=== PATIENT | female | born 1950 | race Caucasian/White ===

== ENCOUNTER 2018-03-28 10:20 | Outpatient (CLI) | payer MEDICAID | END 2018-03-28 10:21 | disposition home or self-care (01) | LOC: C.MAMMO 10:20 | DX: R92.8 Other abnormal and inconclusive findings on diagnostic imaging of breast (principal) ==

== ENCOUNTER 2018-08-23 13:14 | Observation (INO) | payer MEDICAID ==
[2018-08-23 13:24] VITALS: BMI 24.7
[2018-08-23] MEDS ORDERED: Aspirin 325 mg EC Tablets PO STA (13:52)
--- NOTE | 2018-08-23 14:36 | C.PDOC ---
History Of Present Illness 67 y/o female pt presents to the ER by ambulance c/o palpitations and SVT. Pt was given 1 round of adenosine which helped her go back to normal. Pt has no history of cardiac hx, SVT and denies fever, chills, SOB, abdominal pain and b ack pain. Time Seen by Provider: 08/23/18 13:46 Chief Complaint (Nursing): Syncope History Per: Patient History/Exam Limitations: no limitations Onset/Duration Of Symptoms: Hrs Current Symptoms Are (Timing): Still Present Past Medical History Reviewed: Historical Data, Nursing Documentation, Vital Signs Vital Signs: Last Vital Signs Temp 98.1 F 08/23/18 13:24 Pulse 88 08/23/18 14:15 Resp 20 08/23/18 14:15 BP 132/69 08/23/18 14:17 Pulse Ox 100 08/23/18 14:15 Primary Care Provider: Rustam Barber Surgical History: Appendectomy (denies) Family History: States: Unknown Family Hx - Social History Hx Alcohol Use: No Hx Substance Use: No - Immunization History Hx Tetanus Toxoid Vaccination: No Hx Influenza Vaccination: No Hx Pneumococcal Vaccination: No Review Of Systems Except As Marked, All Systems Reviewed And Found Negative. Constitutional: Negative for: Fever, Chills, Other (cardiac hx or SVT ) Cardiovascular: Positive for: Palpitations, Other (SVT ) Respiratory: Negative for: Shortness of Breath Gastrointestinal: Negative for: Abdominal Pain Musculoskeletal: Negative for: Back Pain Physical Exam - Physical Exam Appears: Non-toxic, No Acute Distress, Other (elderly, smiling dominican female ) Skin: Warm, Dry Head: Normacephalic Eye(s): bilateral: EOMI Ear(s): Bilateral: Normal Oral Mucosa: Moist Throat: Normal, No Erythema Neck: Normal ROM, Supple Chest: Symmetrical Cardiovascular: Rhythm Regular Respiratory: Normal Breath Sounds Gastrointestinal/Abdominal: Soft, No Tenderness Back: No CVA Tenderness Neurological/Psych: Oriented x3, Normal Speech ED Course And Treatment - Laboratory Results Result Diagrams: 08/23/18 14:40 08/23/18 14:40 Lab Interpretation: Normal (trop neg.) ECG: Interpreted By Me ECG Rhythm: Sinus Rhythm ECG Interpretation: Normal Rate From EC O2 Sat by Pulse Oximetry: 100 (RA) Pulse Ox Interpretation: Normal - Radiology CXR: Interpreted by Me CXR Interpretation: Yes: No Acute Disease Reevaluation Time: 16:26 Reassessment Condition: Improved - Physician Consult Information Outcome Of Conversation: 1410, 1620 d/w Dr. Alanis, PMD, ok to adm to Hospitalists. 1410: d/w Dr. Mccoy, will consult. 1700: d/w Dr. Turcios, Hospitalist, ok to Tele OBs Medical Decision Making Medical Decision Making: Plans: -- labs -- EKG -- CXR -- Ecotrin -- Lopressor 2:[address] Alanis and was suggested to call Dr. Mccoy for cardiac consult 2:[address] Mccoy. SVT of ? etiology well controlled in ED Disposition Doctor Will See Patient In The: Office Counseled Patient/Family Regarding: Studies Performed - Disposition Disposition: HOME/ ROUTINE Disposition Time: 16:28 Condition: GOOD - Clinical Impression Clinical Impression: Supraventricular tachycardia - Scribe Statement The provider has reviewed the documentation as recorded by the Padmini Frank Do Provider Attestation: All medical record entries made by the Padmini were at my direction and personally dictated by me. I have reviewed the chart and agree that the record accurately reflects my personal performance of the history, physical exam, medical decision making, and the department course for this patient. I have also personally directed, reviewed, and agree with the discharge instructions and d isposition.
--- NOTE | 2018-08-23 14:41 | RAD ---
Date of service: 08/23/2018 PROCEDURE: CHEST RADIOGRAPH, 1 VIEW HISTORY: SOB COMPARISON: None available. FINDINGS: LUNGS: Clear. PLEURA: No pneumothorax or pleural fluid seen. CARDIOVASCULAR: No aortic atherosclerotic calcification present. Normal. OSSEOUS STRUCTURES: No significant abnormalities. VISUALIZED UPPER ABDOMEN: Normal. OTHER FINDINGS: None. IMPRESSION: No active disease.
[2018-08-23 14:49] LABS: BASO # 0.1 K/uL (0.0-0.2); EOS # 0.2 K/uL (0.0-0.7); EOS % 2.1 % (0.0-4.0); HEMOGLOBIN 12.1 g/dL (11.0-16.0); LYMPH % 30.2 % (20.0-40.0); MEAN CELL VOLUME 77.1 fL (81.0-99.0); MEAN CORPUSCULAR HEMOGLOBIN 25.8 pg (27.0-31.0); MEAN CORPUSCULAR HGB CONC 33.5 g/dL (33.0-37.0); MEAN PLATELET VOLUME 9.9 fL (7.2-11.7); MONO # 0.6 K/uL (0.0-0.8); NEUT % 60.7 % (50.0-75.0); NRBC % 0.1 % (0.0-2.0); RBC 4.66 Mil/uL (3.80-5.20); RED CELL DISTRIBUTION WIDTH 13.3 % (11.5-14.5)
[2018-08-23 14:52] LABS: WHITE BLOOD COUNT 9.8 K/uL (4.8-10.8)
[2018-08-23 15:00] LABS: ALB/GLOB RATIO 1.3 (1.0-2.1); ALBUMIN 3.7 g/dL (3.5-5.0); ALT/SGPT 35 U/L (9-52); AST/SGOT 28 U/L (14-36); BLOOD UREA NITROGEN 16 mg/dL (7-17); CALCIUM 8.8 mg/dl (8.6-10.4); GFR NON-AFRICAN AMERICAN > 60
[2018-08-23 15:04] LABS: INR 1.1; PROTHROMBIN TIME 12.5 SECONDS (9.7-12.2)
[2018-08-23 15:12] LABS: B-TYPE NATRIURETIC PEPTIDE 88.6 pg/mL (0-900)
--- NOTE | 2018-08-23 17:51 | CP.PCM.HP ---
<Vimal Kidd - Last Filed: 08/23/18 18:24> History of Present Illness - History of Present Illness History of Present Illness: PGY-[address] and [address] Turcios Patient is a 67 year old female with no stated significant PMHx who presents with two episodes of palpitations, found to be in SVT presenting from urgent care earlier this evening. Patient states that earlier this morning, she was standing up when suddenly she felt very cold and felt palpitations. She went to sit herself down on the couch and states that after that everything started to go dark and then she lost conciousness and remembers waking up with her daughter who by her side. Patient woke and began to feel better, and then had a nearly identical episode several hours later, prompting her to go to urgent care. Daughter drove patient to urgent care, and during her evaluation at urgent care patient states the physician had 911 called for transport to hospital. EMS arrived on scene and patient found to be in SVT on environmental monitoring technician. Patient was administered adenosine x1 in the filed and SVT broke, with patient returning to normal sinus. Patient states having no prior cardiac history, and recently saw a tufter for the first time because she wanted to have her heart checked and was told that everything was normal. She denies any chest pain, headache, nausea, vomiting, focal weakness, shortness of breath, numbness or tingling, vision changes/blurry or double vision. 12-point ROS reviewed and all negative except as noted per HPI PMHx: denies Surgical hx: Denies Allergiess: NKA Social: Denies tobacco, alcohol, or drug use. Lives at home, retired. Family hx: multiple fam members with heart dz. Older sister has pacemaker. Medications: Flexaril prn on occasion for leg cramps PMD: Dr. Paez Present on Admission - Present on Admission Any Indicators Present on Admission: No Past Patient History - Past Social History Smoking Status: Never Smoked - PSYCHIATRIC Hx Substance Use: No - SURGICAL HISTORY Hx Appendectomy: Yes (denies) - ANESTHESIA Hx Anesthesia: Yes Meds Allergies/Adverse Reactions: Allergies Allergy/AdvReac Type Severity Reaction Status Date / Time No Known Allergies Allergy Verified 08/23/18 13:23 Physical Exam - Constitutional Appears: Non-toxic, No Acute Distress - Head Exam Head Exam: ATRAUMATIC, NORMOCEPHALIC - Eye Exam Eye Exam: EOMI - ENT Exam ENT Exam: Mucous Membranes Moist - Respiratory Exam Respiratory Exam: Clear to Auscultation Bilateral, NORMAL BREATHING PATTERN. absent: Rhonchi, Wheezes - Cardiovascular Exam Cardiovascular Exam: REGULAR RHYTHM, +S1, +S2. absent: Tachycardia, Systolic Murmur Additional comments: NSR on monitor - GI/Abdominal Exam GI & Abdominal Exam: Normal Bowel Sounds, Soft. absent: Tenderness - Extremities Exam Extremities exam: Positive for: normal inspection. Negative for: pedal edema, tenderness - Neurological Exam Neurological exam: Alert, CN II-XII Intact, Oriented x3 - Psychiatric Exam Psychiatric exam: Normal Affect, Normal Mood - Skin Skin Exam: Dry, Intact Results - Vital Signs Recent Vital Signs: Last Vital Signs Temp 98.1 F 08/23/18 13:24 Pulse 68 08/23/18 17:01 Resp 16 08/23/18 17:01 BP 103/62 08/23/18 17:01 Pulse Ox 100 08/23/18 17:05 - Labs Result Diagrams: 08/23/18 14:40 08/23/18 14:40 Labs: Laboratory Results - last 24 hr 08/23/18 08/23/18 08/23/18 13:22 14:40 14:40 WBC 9.8 D RBC 4.66 Hgb 12.1 Hct 36.0 MCV 77.1 L MCH 25.8 L MCHC 33.5 RDW 13.3 Plt Count 242 MPV 9.9 Neut % (Auto) 60.7 Lymph % (Auto) 30.2 Baker % (Auto) 6.0 Eos % (Auto) 2.1 Baso % (Auto) 1.0 Neut # (Auto) 6.0 Lymph # (Auto) 3.0 Baker # (Auto) 0.6 Eos # (Auto) 0.2 Baso # (Auto) 0.1 PT 12.5 H INR 1.1 APTT 31.0 Sodium Potassium Chloride Carbon Dioxide Anion Gap BUN Creatinine Est GFR ( Amer) Est GFR (Non-Af Amer) POC Glucose (mg/dL) 104 Random Glucose Calcium Total Bilirubin AST ALT Alkaline Phosphatase Troponin I NT-Pro-B Natriuret Pep Total Protein Albumin Globulin Albumin/Globulin Ratio 08/23/18 14:40 WBC RBC Hgb Hct MCV MCH MCHC RDW Plt Count MPV Neut % (Auto) Lymph % (Auto) Baker % (Auto) Eos % (Auto) Baso % (Auto) Neut # (Auto) Lymph # (Auto) Baker # (Auto) Eos # (Auto) Baso # (Auto) PT INR APTT Sodium 141 Potassium 3.9 Chloride 105 Carbon Dioxide 29 Anion Gap 11 BUN 16 Creatinine 0.7 Est GFR ( Amer) > 60 Est GFR (Non-Af Amer) > 60 POC Glucose (mg/dL) Random Glucose 92 D Calcium 8.8 Total Bilirubin 0.3 AST 28 ALT 35 Alkaline Phosphatase 66 Troponin I < 0.0120 NT-Pro-B Natriuret Pep 88.6 Total Protein 6.7 Albumin 3.7 Globulin 2.9 Albumin/Globulin Ratio 1.3 Assessment & Plan - Assessment and Plan (Free Text) Assessment: 67 yo F with no significant PMHx cardiac or otherwise, presents with palpitations and syncopal episode, found to be in SVT by EMS and converted to NSR s/p adenosine x1. New-onset SVT Imaging: -CXR 08/23: No active disease -SVT on environmental monitoring technician in the field --> converted s/p adenosine x1 -EKG in ED - NSR. NSR 70s on ED monitor. -Asymptomatic on initial patient encounter -ASA 81 and Lopressor 50 PO given in ED -admit to telemetry -TSH, free T4, T4 - f/u -UDS - f/u -Initial EKG NSR, ROMIs negative -F/u EKG/ROMIs 10:00, 02:00 -Echo - f/u Meds -Cardizen 30 mg PO BID -ASA 81 mg PO daily -Cardiology consulted, Dr. Mccoy - f/u recs PPx -Lovenox 20 mg SC daily -tele -HHD Dispo: Admit to tele. F/u cardio eval Assessment and plan d/w Dr. Karolina Kidd, PGY-1 <Luis Miguel Turcios - Last Filed: 08/23/18 18:34> Results - Vital Signs Recent Vital Signs: Last Vital Signs Temp 98.1 F 08/23/18 13:24 Pulse 68 08/23/18 17:01 Resp 16 08/23/18 17:01 BP 103/62 08/23/18 17:01 Pulse Ox 100 08/23/18 17:05 - Labs Result Diagrams: 08/23/18 14:40 08/23/18 14:40 Labs: Laboratory Results - last 24 hr 08/23/18 08/23/18 08/23/18 13:22 14:40 14:40 WBC 9.8 D RBC 4.66 Hgb 12.1 Hct 36.0 MCV 77.1 L MCH 25.8 L MCHC 33.5 RDW 13.3 Plt Count 242 MPV 9.9 Neut % (Auto) 60.7 Lymph % (Auto) 30.2 Baker % (Auto) 6.0 Eos % (Auto) 2.1 Baso % (Auto) 1.0 Neut # (Auto) 6.0 Lymph # (Auto) 3.0 Baker # (Auto) 0.6 Eos # (Auto) 0.2 Baso # (Auto) 0.1 PT 12.5 H INR 1.1 APTT 31.0 Sodium Potassium Chloride Carbon Dioxide Anion Gap BUN Creatinine Est GFR ( Amer) Est GFR (Non-Af Amer) POC Glucose (mg/dL) 104 Random Glucose Calcium Total Bilirubin AST ALT Alkaline Phosphatase Troponin I NT-Pro-B Natriuret Pep Total Protein Albumin Globulin Albumin/Globulin Ratio 08/23/18 14:40 WBC RBC Hgb Hct MCV MCH MCHC RDW Plt Count MPV Neut % (Auto) Lymph % (Auto) Baker % (Auto) Eos % (Auto) Baso % (Auto) Neut # (Auto) Lymph # (Auto) Baker # (Auto) Eos # (Auto) Baso # (Auto) PT INR APTT Sodium 141 Potassium 3.9 Chloride 105 Carbon Dioxide 29 Anion Gap 11 BUN 16 Creatinine 0.7 Est GFR ( Amer) > 60 Est GFR (Non-Af Amer) > 60 POC Glucose (mg/dL) Random Glucose 92 D Calcium 8.8 Total Bilirubin 0.3 AST 28 ALT 35 Alkaline Phosphatase 66 Troponin I < 0.0120 NT-Pro-B Natriuret Pep 88.6 Total Protein 6.7 Albumin 3.7 Globulin 2.9 Albumin/Globulin Ratio 1.3 Attending/Attestation - Attestation I have personally seen and examined this patient.: Yes I have fully participated in the care of the patient.: Yes I have reviewed all pertinent clinical information: Yes Notes (Text): 08/23/18 18:27 Medical attending: Patient was seen and examined by me with the biomedical equipment specialist. The patient was in the ER bed 4 with her family members at bedside (daughter and grand daughter) Patient reported that currently she felt well. She denied shortness of breath or chest pain at rest. The patient earlier in the day felt sudden palpitations and had to sit down. She called family members who notifed EMS Patient recived adenosine x 1 and this broke the SVT. As mentioned previously she says she does not have any known cardiac history She denied drug use, denied smoking, denied drinking. We reviewed her lab work - it looks very normal. The first cardiac enzyme is negative The patient will have additional troponins overnight and also an echo ordered. She denies chest pain steadfastly - I told her that tommorow we will walk her around and if she is short of breath then we need to consider getting a CT-A to assess for potential PE. She says she gets occasional leg cramps Check TSH, T3, T4, UDS, Echo, Troponins, and maybe a CTA for a PE Luis Miguel Turcios
[2018-08-23] MEDS ORDERED: Metoprolol Succinate 12.5 mg XL Tab PO ONE (20:18)
[2018-08-23 20:38] LABS: TROPONIN I 0.11 ng/mL (0.00-0.120)
--- NOTE | 2018-08-23 23:13 | CP.PCM.CON ---
History of Present Illness - History of Present Illness History of Present Illness: 67 years old female complaining of sudden onset of coldness and dizziness this AM. She passed out temporarily and woke up to find her daughter next to her. Brought to an Urgent care, she was found to be in SVT. She was given Adenosine IV by EMR and her cardiac rhythm returned to RSR. She denies any chest pain. There was no recent SOB, palpitation, dizziness, headache, chest pain on exertion. She is taking no medication. ECG x2 reveals an RSR with non specific ST-T wave change. TNIx2 are normal. Thyroid profile and Pro-BNP are normal. Review of Systems - Cardiovascular Cardiovascular: Palpitations, Syncope Past Patient History - Past Social History Smoking Status: Never Smoked Alcohol: None Drugs: Denies Home Situation {Lives}: With Family Domestic Violence: Negative - PSYCHIATRIC Hx Substance Use: No - SURGICAL HISTORY Hx Appendectomy: Yes (denies) - ANESTHESIA Hx Anesthesia: Yes Meds Allergies/Adverse Reactions: Allergies Allergy/AdvReac Type Severity Reaction Status Date / Time No Known Allergies Allergy Verified 08/23/18 13:23 - Medications Medications: Current Medications Aspirin (Aspirin Chewable) 81 mg PO DAILY [facility] Diltiazem HCl (Cardizem) 30 mg PO BID [facility] Last Admin: 08/23/18 18:00 Dose: Not Given Enoxaparin Sodium (Lovenox) 30 mg SC DAILY [facility] Metoprolol Succinate (Toprol Xl) 12.5 mg PO DAILY [facility] Physical Exam - Constitutional Appears: Well, No Acute Distress - Head Exam Head Exam: NORMAL INSPECTION - Eye Exam Eye Exam: Normal appearance Pupil Exam: NORMAL ACCOMODATION - ENT Exam ENT Exam: Normal Exam - Neck Exam Neck exam: Positive for: Normal Inspection - Respiratory Exam Respiratory Exam: Clear to Auscultation Bilateral, NORMAL BREATHING PATTERN - Cardiovascular Exam Cardiovascular Exam: REGULAR RHYTHM - GI/Abdominal Exam GI & Abdominal Exam: Normal Bowel Sounds, Soft - Rectal Exam Rectal Exam: Deferred - Extremities Exam Extremities exam: Positive for: normal inspection - Back Exam Back exam: NORMAL INSPECTION - Neurological Exam Neurological exam: Alert, Normal Gait, Oriented x3 - Psychiatric Exam Psychiatric exam: Anxious - Skin Skin Exam: Dry, Intact Results - Vital Signs Recent Vital Signs: Last Vital Signs Temp 98.2 F 08/23/18 18:50 Pulse 84 08/23/18 18:50 Resp 18 08/23/18 18:50 BP 98/76 L 08/23/18 20:10 Pulse Ox 98 08/23/18 18:50 - Labs Result Diagrams: 08/23/18 14:40 08/23/18 14:40 Labs: Laboratory Results - last 24 hr 08/23/18 08/23/18 08/23/18 13:22 14:40 14:40 WBC 9.8 D RBC 4.66 Hgb 12.1 Hct 36.0 MCV 77.1 L MCH 25.8 L MCHC 33.5 RDW 13.3 Plt Count 242 MPV 9.9 Neut % (Auto) 60.7 Lymph % (Auto) 30.2 [place] % (Auto) 6.0 Eos % (Auto) 2.1 Baso % (Auto) 1.0 Neut # (Auto) 6.0 Lymph # (Auto) 3.0 [place] # (Auto) 0.6 Eos # (Auto) 0.2 Baso # (Auto) 0.1 PT 12.5 H INR 1.1 APTT 31.0 Sodium Potassium Chloride Carbon Dioxide Anion Gap BUN Creatinine Est GFR ( Amer) Est GFR (Non-Af Amer) POC Glucose (mg/dL) 104 Random Glucose Calcium Total Bilirubin AST ALT Alkaline Phosphatase Total Creatine Kinase CK-MB (Mass) Troponin I NT-Pro-B Natriuret Pep Total Protein Albumin Globulin Albumin/Globulin Ratio Thyroxine (T4) Free T3 pg/mL TSH 3rd Generation 08/23/18 08/23/18 08/23/18 14:40 18:11 19:59 WBC RBC Hgb Hct MCV MCH MCHC RDW Plt Count MPV Neut % (Auto) Lymph % (Auto) [place] % (Auto) Eos % (Auto) Baso % (Auto) Neut # (Auto) Lymph # (Auto) [place] # (Auto) Eos # (Auto) Baso # (Auto) PT INR APTT Sodium 141 Potassium 3.9 Chloride 105 Carbon Dioxide 29 Anion Gap 11 BUN 16 Creatinine 0.7 Est GFR ( Amer) > 60 Est GFR (Non-Af Amer) > 60 POC Glucose (mg/dL) Random Glucose 92 D Calcium 8.8 Total Bilirubin 0.3 AST 28 ALT 35 Alkaline Phosphatase 66 Total Creatine Kinase 44 CK-MB (Mass) 1.00 Troponin I < 0.0120 0.1100 NT-Pro-B Natriuret Pep 88.6 Total Protein 6.7 Albumin 3.7 Globulin 2.9 Albumin/Globulin Ratio 1.3 Thyroxine (T4) 9.00 Free T3 pg/mL 4.17 TSH 3rd Generation 1.30 Assessment & Plan (1) Supraventricular tachycardia Assessment and Plan: Will get an echo to assess cardiac chambers and valves. Will start on small dose of Metoprolol for now. If SVT recurs, then the patient needs RF ablation. Status: Resolved
[2018-08-24 02:04] VITALS: RESP 20
[2018-08-24 02:42] LABS: CK-MB 1.07 ng/mL (0.0-3.38); TROPONIN I 0.067 ng/mL (0.00-0.120)
[2018-08-24 07:29] VITALS: PULSE 71
[2018-08-24 07:34] LABS: BASO # 0.1 K/uL (0.0-0.2); BASO % 1.2 % (0.0-2.0); EOS # 0.2 K/uL (0.0-0.7); EOS % 2.3 % (0.0-4.0); HEMOGLOBIN 11.8 g/dL (11.0-16.0); LYMPH # 2.1 K/uL (1.0-4.3); LYMPH % 26.2 % (20.0-40.0); MEAN CORPUSCULAR HEMOGLOBIN 26.6 pg (27.0-31.0); MEAN CORPUSCULAR HGB CONC 33.7 g/dL (33.0-37.0); MONO # 0.5 K/uL (0.0-0.8); MONO % 6.1 % (0.0-10.0); NEUT # 5.2 K/uL (1.8-7.0); NEUT % 64.2 % (50.0-75.0); RBC 4.43 Mil/uL (3.80-5.20); RED CELL DISTRIBUTION WIDTH 13.1 % (11.5-14.5); WHITE BLOOD COUNT 8.2 K/uL (4.8-10.8)
[2018-08-24 07:58] LABS: ALB/GLOB RATIO 1.4 (1.0-2.1); ALBUMIN 3.6 g/dL (3.5-5.0); ALT/SGPT 34 U/L (9-52); AST/SGOT 34 U/L (14-36); BLOOD UREA NITROGEN 15 mg/dL (7-17); CALCIUM 8.7 mg/dl (8.6-10.4); GFR NON-AFRICAN AMERICAN > 60
[2018-08-24 08:02] LABS: CK-MB 0.77 ng/mL (0.0-3.38)
[2018-08-24 08:03] VITALS: BP 128/74; TEMP 98; O2SAT 99
[2018-08-24 08:08] LABS: FREE T4 1.01 ng/dL (0.78-2.19)
[2018-08-24] MEDS ORDERED: Metoprolol Succinate 12.5 mg XL Tab PO SCH (10:00)
[2018-08-24] MEDS ORDERED: Enoxaparin 30 mg Syringe SC SCH (10:00)
--- NOTE | 2018-08-24 10:41 | CP.PCM.DIS ---
Provider - Provider Date of Admission: 08/23/18 16:23 Attending physician: Ton Alanis MD Primary care physician: Dr Alanis Consults: 08/23/18 14:15 Cardiology Consult Routine Comment: SVT Consulting Provider: Kam Mccoy Consulting Physician: Kam Mccoy Reason for Consult: SVT Time Spent in preparation of Discharge (in minutes): 29 Diagnosis - Discharge Diagnosis (1) Supraventricular tachycardia Status: Resolved Hospital Course - Lab Results Lab Results: Most Recent Lab Values WBC 8.2 K/uL (4.8-10.8) 08/24/18 07:15 RBC 4.43 Mil/uL (3.80-5.20) 08/24/18 07:15 Hgb 11.8 g/dL (11.0-16.0) 08/24/18 07:15 Hct 35.0 % (34.0-47.0) 08/24/18 07:15 MCV 79.0 fL (81.0-99.0) L 08/24/18 07:15 MCH 26.6 pg (27.0-31.0) L 08/24/18 07:15 MCHC 33.7 g/dL (33.0-37.0) 08/24/18 07:15 RDW 13.1 % (11.5-14.5) 08/24/18 07:15 Plt Count 223 K/uL (130-400) 08/24/18 07:15 MPV 10.0 fL (7.2-11.7) 08/24/18 07:15 Neut % (Auto) 64.2 % (50.0-75.0) 08/24/18 07:15 Lymph % (Auto) 26.2 % (20.0-40.0) 08/24/18 07:15 [place] % (Auto) 6.1 % (0.0-10.0) 08/24/18 07:15 Eos % (Auto) 2.3 % (0.0-4.0) 08/24/18 07:15 Baso % (Auto) 1.2 % (0.0-2.0) 08/24/18 07:15 Neut # (Auto) 5.2 K/uL (1.8-7.0) 08/24/18 07:15 Lymph # (Auto) 2.1 K/uL (1.0-4.3) 08/24/18 07:15 [place] # (Auto) 0.5 K/uL (0.0-0.8) 08/24/18 07:15 Eos # (Auto) 0.2 K/uL (0.0-0.7) 08/24/18 07:15 Baso # (Auto) 0.1 K/uL (0.0-0.2) 08/24/18 07:15 PT 12.5 SECONDS (9.7-12.2) H 08/23/18 14:40 INR 1.1 08/23/18 14:40 APTT 31.0 SECONDS (21-34) 08/23/18 14:40 Sodium 141 mmol/L (132-148) 08/24/18 07:15 Potassium 4.0 mmol/L (3.6-5.2) 08/24/18 07:15 Chloride 105 mmol/L (98-107) 08/24/18 07:15 Carbon Dioxide 29 mmol/L (22-30) 08/24/18 07:15 Anion Gap 10 (10-20) 08/24/18 07:15 BUN 15 mg/dL (7-17) 08/24/18 07:15 Creatinine 0.6 mg/dL (0.7-1.2) L 08/24/18 07:15 Est GFR ( Amer) > 60 08/24/18 07:15 Est GFR (Non-Af Amer) > 60 08/24/18 07:15 POC Glucose (mg/dL) 104 mg/dL (65-110) 08/23/18 13:22 Random Glucose 93 mg/dL (65-105) 08/24/18 07:15 Calcium 8.7 mg/dl (8.6-10.4) 08/24/18 07:15 Total Bilirubin 0.5 mg/dL (0.2-1.3) 08/24/18 07:15 AST 34 U/L (14-36) 08/24/18 07:15 ALT 34 U/L (9-52) 08/24/18 07:15 Alkaline Phosphatase 65 U/L (38-126) 08/24/18 07:15 Total Creatine Kinase 33 U/L (30-135) 08/24/18 07:15 CK-MB (Mass) 0.77 ng/mL (0.0-3.38) 08/24/18 07:15 Troponin I 0.0480 ng/mL (0.00-0.120) 08/24/18 07:15 NT-Pro-B Natriuret Pep 88.6 pg/mL (0-900) 08/23/18 14:40 Total Protein 6.2 g/dL (6.3-8.3) L 08/24/18 07:15 Albumin 3.6 g/dL (3.5-5.0) 08/24/18 07:15 Globulin 2.6 gm/dL (2.2-3.9) 08/24/18 07:15 Albumin/Globulin Ratio 1.4 (1.0-2.1) 08/24/18 07:15 Free T4 1.01 ng/dL (0.78-2.19) 08/24/18 07:15 Thyroxine (T4) 9.00 ug/dL (5.5-11.0) 08/23/18 18:11 Free T3 pg/mL 4.17 pg/mL (2.77-5.27) 08/23/18 18:11 TSH 3rd Generation 0.68 mIU/L (0.46-4.68) 08/24/18 07:15 - Hospital Course Hospital Course: This is a 67 year old female who came to the hospital with SVT. She reports she was not doing anything at home when she suddenly felt weak, as if her heart was racing, cold and clammy. She sat down immediately. She reports she did NOT loose consciousness and remembers notifying her family member who came and called EMS. She was found to have SVT and immediately given adenosine x 1 which immediately broke the SVT. By the time she came to the hospital ER she was NSR in the 70s. Family were at bedside as well. Patient reported that she felt well and she does not think she has any cardiac history. TSH was ok, cardiac enzymes negative x 3, Her CBC and CMP were very normal. EKG was stable as well. She only received Toprol XL once overnight This morning she explained to us that she was feeling well. She explains that her brother just this morning and that she wants to leave as soon as possible. Her brother has been very sick for 3 weeks and his illness has been on her mind for some time now. Overnight telemetry monitoring shows at NSR and HR in the 60s to 70s. On exam this morning I also had her walk around and she was able to do so quickly without any assistance. She denied feeling dizzy, denied chest pain, denied paola rtness of breath. She denied dizziness when standing and sitting up quickly as well. She wanted to leave A because her brother just , however I asked her to at least wait for the echo to be done and she agreed. I explained to her that she needs to follow up with her primary physician for the results of the echo. I also explained this to family members as well. They agreed to stay only for the echo and want to be discharged today. RX for Toprol XL Discharge Exam - Head Exam Head Exam: NORMAL INSPECTION - Eye Exam Eye Exam: EOMI, Normal appearance - Respiratory Exam Respiratory Exam: Clear to PA & Lateral, NORMAL BREATHING PATTERN, UNREMARKABLE - Cardiovascular Exam Cardiovascular Exam: REGULAR RHYTHM - GI/Abdominal Exam GI & Abdominal Exam: Normal Bowel Sounds, Unremarkable - Neurological Exam Neurological exam: Alert, CN II-XII Intact, Oriented x3 - Psychiatric Exam Psychiatric exam: Normal Affect, Normal Mood - Skin Skin Exam: Normal Color, Warm Discharge Plan - Discharge Medications Prescriptions: Metoprolol Succinate XL [Toprol XL] 12.5 mg PO DAILY #14 tab - Follow Up Plan Condition: GOOD Disposition: HOME/ ROUTINE
--- NOTE | 2018-08-26 07:37 | CARD ---
APPROVED REPORT Date of service: 08/24/2018 EXAM: Two-dimensional and M-mode echocardiogram with Doppler and color Doppler. Other Information Quality : AverageRhythm : NSR INDICATION SVT 2D DIMENSIONS IVSd0.8 (0.7-1.1cm)Aortic Root (2D)2.4 (2.0-3.7cm) LVDd4.3 (3.9-5.9cm)PWd1.0 (0.7-1.1cm) LVDs3.1 (2.5-4.0cm)FS (%) 27.7 % LVEF (%)54.0 (>50%) M-Mode DIMENSIONS Left Atrium (MM)3.74 (2.5-4.0cm)IVSd1.29 (0.7-1.1cm) Aortic Root2.47 (2.2-3.7cm)LVDd4.31 (4.0-5.6cm) Aortic Cusp Exc.1.40 (1.5-2.0cm)PWd1.29 (0.7-1.1cm) FS (%) 54 %LVDs1.97 (2.0-3.8cm) LVEF (%)85 (>50%) Aortic Valve AoV Peak Rmcjkbpi019.4cm/Elisabeth Peak GR.8mmHg Mitral Valve MV E Gekijxne69.0cm/sMV A Gygxmmkr56.6cm/sE/A ratio0.9 TDI E/Lateral E'0.0E/Medial E'0.0 Tricuspid Valve TR Peak [id number]/sTR Peak Gr.[id number] LEFT VENTRICLE The left ventricle is normal size. There is mild concentric left ventricular hypertrophy. Left ventricle systolic function is normal. The Ejection Fraction is >70%. There is normal LV segmental wall motion. Tissue Doppler imaging reveals abnormal left ventricular diastolic dysfunction. RIGHT VENTRICLE The right ventricle is normal size. There is normal right ventricular wall thickness. The right ventricular systolic function is normal. ATRIA The left atrium size is normal. The right atrium size is normal. The interatrial septum is intact with no evidence for an atrial septal defect. AORTIC VALVE The aortic valve is normal in structure. No aortic regurgitation is present. There is no aortic valvular stenosis. There is no aortic valvular vegetation. MITRAL VALVE The mitral valve is normal in structure. There is no evidence of mitral valve prolapse. There is no mitral valve stenosis. There is no mitral valve regurgitation noted. TRICUSPID VALVE The tricuspid valve is normal in structure. There is trace tricuspid regurgitation. Right ventricular systolic pressure is estimated at less than 30 mmHg. There is no pulmonary hypertension. PULMONIC VALVE The pulmonic valve is not well visualized. There is trace pulmonic valvular regurgitation. GREAT VESSELS The aortic root is normal in size. PERICARDIAL EFFUSION There is no significant pericardial effusion. <Conclusion> Left ventricle systolic function is normal. The Ejection Fraction is >70%. Hypertensive heart disease. Diastolic dysfunction. No aortic regurgitation is present. There is no mitral valve regurgitation noted. There is trace tricuspid regurgitation. There is no pulmonary hypertension. There is trace pulmonic valvular regurgitation.
== END 2018-08-24 11:37 | disposition home or self-care (01) ==
LOC: C.ER 13:14 → C.9E 16:23 → C.6T 18:43
PROVIDERS: ADMIT Internal Medicine; ATTEND Internal Medicine
DX: I47.1 Supraventricular tachycardia (principal); R55 Syncope and collapse
CPT/HCPCS: 36415; 71045; 80053; 82948; 83880; 84436; 84439; 84443; 84481; 84484; 85025; 85610; 85730; 93306; 99285; G0378